=== PATIENT | male | born 1970 | race Caucasian/White ===

== ENCOUNTER → 2020-12-15 | Outpatient (CLI) | payer OTHER ==
--- NOTE | 2020-12-15 10:33 | KCIC ---
EXAM: CT coronary artery calcium screening; radiologist over read. HISTORY: Hyperlipidemia. TECHNIQUE: Computed tomographic images of the chest were obtained without contrast. Multiplanar refor matting was performed. *One or more of the following individualized dose reduction techniques were utilized for this examina tion: 1. Automated exposure control. 2. Adjustment of the mA and/or kV according to patient size. 3. Use of iterative reconstruction technique. COMPARISON: None. FINDINGS: The heart is normal in size. There is calcified atherosclerotic plaque involving the gonzalez ry arteries. There is no lymphadenopathy. There is no infiltrate, pleural effusion or pneumothorax. T here is no suspicious pulmonary nodule. There is no acute finding involving the upper abdomen. There are small simple hepatic cysts. There is no suspicious osseous lesion. Coronary artery calcium score: Left main artery - 0 Left anterior descending - 94.6 Left circumflex - 0 Right coronary artery - 2.2 Posterior descending artery - 0 TOTAL = 96.8 IMPRESSION: 1. Coronary artery calcium score of 96.8. There is moderate atherosclerotic plaque. 2. No significant incidental thoracic finding. Electronically signed by: Cyndi Hunter MD (12/15/2020 10:31 AM) [facility]
== END ==
LOC: KCIC CT 09:50
PROVIDERS: ATTEND Physician Assistant
DX: Z00.00 Encounter for general adult medical examination without abnormal findings (principal); I25.10 Atherosclerotic heart disease of native coronary artery without angina pectoris; E78.5 Hyperlipidemia, unspecified; K76.89 Other specified diseases of liver
CPT/HCPCS: 75571